=== PATIENT | male | born 1945 | race Caucasian/White ===

== ENCOUNTER 2016-09-09 18:09 | Emergency (ER) | payer MEDICARE ==
[2016-09-09 18:13] VITALS: TEMP 99
[2016-09-09 18:19] VITALS: BMI 29.5
[2016-09-09 18:30] LABS: ALLEN'S TEST PASS; BEb 4.7 (+/- 2); TCO2 29.3 MMOL/L (23-27)
[2016-09-09 18:31] LABS: ABG Draw Site Right Radial
[2016-09-09 18:35] LABS: AUTOMATED BASOPHIL 1.3 % (0-2); AUTOMATED LYMPH 6.8 % (17-44); AUTOMATED MONOCYTE 16.3 % (3-10); AUTOMATED NEUTROPHIL 75.6 % (45-76); MPV 7.8 fL (7.4-10.4)
--- NOTE | 2016-09-09 18:43 | DIRPT ---
CLINICAL DATA: Shortness of breath. Respiratory distress for 1 week, worsening. EXAM: CHEST 2 VIEW COMPARISON: 05/12/2016 FINDINGS: Heart is normal size. No confluent airspace opacities or effusions. No acute bony abnormality. IMPRESSION: No active cardiopulmonary disease. Electronically Signed By: Ruperto Starkey M.D. On: 09/09/2016 18:40
[2016-09-09 18:58] LABS: BLOOD UREA NITROGEN 17 MG/DL (9-20); CALCIUM 8.8 MG/DL (8.4-10.2); CALCULATED OSMOLALITY 272 MOs/Kg (270-290); CHLORIDE 101 mEq/L (98-107); GLUCOSE 136 mg/dL (70-99); SODIUM LEVEL 139 mEq/L (137-146); TOTAL PROTEIN 7.4 G/DL (6.3-8.2)
--- NOTE | 2016-09-09 21:59 | EDPRACDOC ---
- General Information Chief Complaint: Dyspnea/Resp distress Stated Complaint: SHOB TROUBLE BEATHING HX COPD USES O2 @NIGHT Time Seen by Provider: 09/09/16 21:37 Mode Of Arrival: Car Home Medications: Home Medications Atenolol 100 mg PO DAILY 07/24/15 Gabapentin [Neurontin] 600 mg PO QAM 07/24/15 Hydrocodone Bit/Acetaminophen [[place] 5-325 Tablet] 1 tab PO Q6H PRN 07/24/15 Lisinopril [Zestril] 40 mg PO DAILY 07/24/15 MetFORMIN (Immediate Release) [GLUCOPHAGE Immed Release] 1,000 mg PO BID Multivit-Min/FA/Lycopene/Lut [Centrum Silver Tablet] 1 tab PO DAILY 07/24/15 Trazodone HCl [Desyrel] 50 mg PO QHS 07/24/15 Furosemide [Lasix] 10 mg PO DAILY 05/12/16 Gabapentin [Neurontin] 1,200 mg PO HS 05/12/16 Glipizide [Glucotrol] 5 mg PO DAILY(EDA) 05/12/16 HydrALAZINE (Cardiovascular) [Apresoline] 50 mg PO BID 05/12/16 Azithromycin [Zithromax] 250 mg PO DAILY #6 tablet 09/09/16 Prednisone [Deltasone, Orasone] 20 mg PO DAILY #20 tab 09/09/16 Allergies/Adverse Reactions: Allergies Allergy/AdvReac Type Severity Reaction Status Date / Time ipratropium Allergy Intermediate NOSE & Verified 09/09/16 18:17 LIPS BROKE OUT, FACE SWELLED - History of Present Illness Onset: 2 WEEKS Shortness of Breath: Moderate Relevant History: Reports: COPD Cough: Reports: Non-productive Rhinorrhea: Reports: Clear SOB Worsens with: Reports: Exertion, Movement, Anxiety. Denies: During Sleep, PND, BENSON, Orthopnea SOB Improves with: Reports: Inhaler, Rest Associated Signs and symptoms: Reports: Cough, Nasal Symptoms. Denies: Fever, Nausea, Vomiting, Diarrhea, Myalgia Other History: NOT USING NEBS AT HOME "CANT AFFORD THEM" ED Past Medical History - History Reviewed Yes Nurses notes reviewed and agree except as marked - Patient Medical History Cardiac History: Reports: Hypertension Respiratory History: Reports: COPD Psychological History: Denies: Depression, Bipolar Disorder, Substance Use Disorder Systemic History: Reports: Diabetes - Family Medical History Reports: Hypertension (mother), Diabetes (mother), Cardiac Disorders (father) - Social Medical History Smoking Status: Former smoker Social History: Denies: Substance Use Disorder EDM Review of Systems - Review of Systems ROS Negative Except as Marked: Yes All systems reviewed and were negative except as marked - Physical Exam Constitutional: Alert, Distress (MILD) Oriented to: Time, Person, Place Last recorded Vital Signs: Last Vital Signs Temp 99.0 F 09/09/16 18:09 Pulse 79 09/09/16 18:09 Resp 22 09/09/16 18:09 BP 169/82 09/09/16 18:09 Pulse Ox 93 09/09/16 18:35 Oxygen Pulse Oxygen Saturation 93 O2 Device Nasal Cannula Oxygen Flow Rate 2 Fraction of Inspired Oxygen ( FIO2) - HEENT Head: Normal Oropharynx: Normal. negative: Membranes Dry Neck: Normal. negative: Limited ROM, Lymphadenopathy, Meningeal Signs - Respiratory/Cardiovascular Respiratory: Normal - CTA, Diminished, Rhonchi. negative: Accessory Muscle Use , Rales, Tachypnea Cardiovascular: Normal. negative: Tachycardia, Irregular, Diastolic murmur, Systolic murmur - GI Auscultation: Normal Palpation: Normal Tenderness: Non tender. negative: Guarding, Rebound, Rigidity Weston's Sign: Negative - Musculoskeletal Back: Normal Extremities: Normal. negative: Pedal Edema, Pedal Pulse - Integumentary Skin: Normal, Warm, Dry - Neurologic Memory Impaired: Normal Motor Function: Normal Mood Description: Normal Thought: Coherent Perception: Normal ED SOB MDM - Results Result Diagrams: 09/09/16 18:23 09/09/16 18:23 Results: WBC 8.6 xk/uL (3.8-10.8) 09/09/16 18:23 RBC 5.32 xM/uL (4.70-6.10) 09/09/16 18: Hgb 14.9 g/dL (14.0-18.0) 09/09/16 18: Hct 45.2 % (42-52) 09/09/16 18:23 MCV 85 fL (80-94) 09/09/16 18:23 MCH 28.0 pg (27-32) 09/09/16 18: MCHC 32.9 g/dl (33-36) L 09/09/16 18:23 RDW 17.1 % (11.5-14.5) H 09/09/16 18:23 Plt Count 154 xk/uL (130-400) 09/09/16 18:23 MPV 7.8 fL (7.4-10.4) 09/09/16 18:23 Neut % (Auto) 75.6 % (45-76) 09/09/16 18:23 Lymph % (Auto) 6.8 % (17-44) L 09/09/16 18:23 Polk % (Auto) 16.3 % (3-10) H 09/09/16 18:23 Eos % (Auto) 0.0 % (0-5) 09/09/16 18:23 Baso % (Auto) 1.3 % (0-2) 09/09/16 18:23 Absolute Neuts (auto) 6.45 xk/uL (1.7-8.2) 09/09/16 18:23 Absolute Lymphs (auto) 0.52 xk/uL (0.65-4.75) L 09/09/16 18:23 Puncture Site Right radial 09/09/16 18:25 pH 7.490 pH UNITS (7.35-7.45) H 09/09/16 18:25 pCO2 37.0 mmHg (35-45) 09/09/16 18:25 pO2 63.0 mmHg (80-100) L 09/09/16 18:25 HCO3 28.2 MMOL/L (22-26) H 09/09/16 18:25 Total CO2 29.3 MMOL/L (23-27) H 09/09/16 18:25 Base Excess 4.7 (+/- 2) H 09/09/16 18:25 FiO2 % 2lpm nc 09/09/16 18:25 Specimen Drawn By Piksa 09/09/16 18:25 Sodium 139 mEq/L (137-146) 09/09/16 18:23 Potassium 4.1 mEq/L (3.5-5.1) 09/09/16 18:23 Chloride 101 mEq/L (98-107) 09/09/16 18:23 Carbon Dioxide 27 mMOL/L (22-33) 09/09/16 18:23 Anion Gap 15 mEq/L (8-16) 09/09/16 18:23 BUN 17 MG/DL (9-20) 09/09/16 18:23 Creatinine 1.00 MG/DL (0.66-1.25) 09/09/16 18:23 Estimated GFR (MDRD) > 60 mL/min (>=60) 09/09/16 18:23 Glucose 136 mg/dL (70-99) H 09/09/16 18:23 Calculated Osmolality 272 MOs/Kg (270-290) 09/09/16 18:23 Calcium 8.8 MG/DL (8.4-10.2) 09/09/16 18:23 Total Bilirubin 0.9 MG/DL (0.2-1.3) 09/09/16 18:23 AST 34 IU/L (17-59) 09/09/16 18:23 ALT 31 IU/L (21-72) 09/09/16 18:23 Alkaline Phosphatase 56 IU/L (50-160) 09/09/16 18:23 Total Protein 7.4 G/DL (6.3-8.2) 09/09/16 18:23 Albumin 4.0 G/DL (3.5-5.0) 09/09/16 18:23 Lab Results 09/09/16 09/09/16 09/09/16 18:25 18:23 18:23 WBC 8.6 RBC 5.32 Hgb 14.9 Hct 45.2 MCV 85 MCH 28.0 MCHC 32.9 L RDW 17.1 H Plt Count 154 MPV 7.8 Neut % (Auto) 75.6 Lymph % (Auto) 6.8 L [place] % (Auto) 16.3 H Eos % (Auto) 0.0 Baso % (Auto) 1.3 Absolute Neuts (auto) 6.45 Absolute Lymphs (auto) 0.52 L Puncture Site Right radial pH 7.490 H pCO2 37.0 pO2 63.0 L HCO3 28.2 H Total CO2 29.3 H Base Excess 4.7 H FiO2 % 2lpm nc Specimen Drawn By Piksa Sodium 139 Potassium 4.1 Chloride 101 Carbon Dioxide 27 Anion Gap 15 BUN 17 Creatinine 1.00 Estimated GFR (MDRD) > 60 Glucose 136 H Calculated Osmolality 272 Calcium 8.8 Total Bilirubin 0.9 AST 34 ALT 31 Alkaline Phosphatase 56 Total Protein 7.4 Albumin 4.0 - EKG EKG #1 EKG Time: 18:12 -: Yes EKG interpreted by me Rate: bpm: 73 [place]: Normal Rhythm: NSR Block: None Hypertrophy: None ST: Normal - Departure Disposition: Home Condition: Stable Final Diagnosis: Acute exacerbation of chronic obstructive airways disease, Acute bronchitis Instructions: Acute Bronchitis (ED), *Heart Failure (Activity, Diet, Worsening Symptoms, Weight Monitoring) (ED), COPD (Chronic Obstructive Pulmonary Disease) (ED) Education/Counseling Given To: Patient Education/Counseling Given Regarding: Diagnosis, Treatment, Prognosis Referrals: Saúl Gandara MD [Primary Care Provider] - One Week Prescriptions: New Azithromycin [Zithromax] 250 mg PO DAILY #6 tablet Prednisone [Deltasone, Orasone] 20 mg PO DAILY #20 tab No Action Trazodone HCl [Desyrel] 50 mg PO QHS Atenolol 100 mg PO DAILY Lisinopril [Zestril] 40 mg PO DAILY Hydrocodone Bit/Acetaminophen [[place] 5-325 Tablet] 1 tab PO Q6H PRN PRN Reason: Pain MetFORMIN (Immediate Release) [GLUCOPHAGE Immed Release] 1,000 mg PO BID Gabapentin [Neurontin] 600 mg PO QAM Multivit-Min/FA/Lycopene/Lut [Centrum Silver Tablet] 1 tab PO DAILY Gabapentin [Neurontin] 1,200 mg PO HS Furosemide [Lasix] 10 mg PO DAILY HydrALAZINE (Cardiovascular) [Apresoline] 50 mg PO BID Glipizide [Glucotrol] 5 mg PO DAILY(EDA)
[2016-09-09] MEDS: ALBUTEROL 0.083% 3 ML NEB NEB SCH ×3 (22:16→22:38)
[2016-09-09] MEDS ORDERED: ALBUTEROL 6.7 GM MDI INH ONE (23:03)
[2016-09-09 23:33] VITALS: BP 166/74; PULSE 80
== END 2016-09-09 23:22 | disposition home or self-care (01) ==
LOC: ED 18:09
DX: J44.0 Chronic obstructive pulmonary disease with (acute) lower respiratory infection (principal); J20.9 Acute bronchitis, unspecified; J44.1 Chronic obstructive pulmonary disease with (acute) exacerbation
CPT/HCPCS: 36415; 36600; 71020; 80053; 82803; 85025; 93005; 94640; 99284; A9270; J3490